=== PATIENT | female | born 1975 | race Caucasian/White ===

== ENCOUNTER 2016-12-16 14:56 | Emergency (ER) | payer BC ==
[2016-12-16 15:28] VITALS: BP 118/65
[2016-12-16] MEDS ORDERED: cefTRIAXone VIAL(*) 1,000 MG VIAL IM ONE (15:45)
[2016-12-16] MEDS ORDERED: Lidocaine 1% MPF* 2 ML VIAL INJ ONE (15:46)
--- NOTE | 2016-12-16 15:55 | UC ---
Skin Complaint HPI - HPI Summary HPI Summary: Patients legs have become swollen and red, painful, she divine have a fever 3 days ago , but not now. she has been using the hot tub daily - History of Current Complaint Chief Complaint: [facility] Time Seen by Provider: 12/16/16 15:31 Stated Complaint: RIGHT LEG SKIN COMPLAINT Hx Obtained From: Patient Hx Last Menstrual Period: 11/24/16 ?: No Onset/Duration: Sudden Onset, Lasting Days Skin Exposure Onset/Duration: Days Ago Timing: Constant Onset Severity: Mild Current Severity: Severe Location: Discrete - lower legs Character: Redness, Raised, Painful Aggravating Factor(s): Nothing Alleviating Factor(s): Nothing Associated Signs & Symptoms: Positive: Rash Related History: Possible Reaction to: Environmental Exposure - Allergy/Home Medications Allergies/Adverse Reactions: Allergies Allergy/AdvReac Type Severity Reaction Status Date / Time No Known Allergies Allergy Verified 12/16/16 15:28 Review of Systems Constitutional: Negative Skin: Rash, Other - drainage Eyes: Negative ENT: Negative Respiratory: Negative Cardiovascular: Negative Gastrointestinal: Negative Genitourinary: Negative Motor: Negative Neurovascular: Negative Musculoskeletal: Negative Neurological: Negative Is Patient Immunocompromised?: No All Other Systems Reviewed And Are Negative: Yes PMH/Surg Hx/FS Hx/Imm Hx Previously Healthy: Yes - Surgical History Surgical History: Yes Surgery Procedure, Year, and Place: right ankle - Family History Known Family History: Negative: Cardiac Disease, Hypertension - Social History Occupation: Employed Full-time Alcohol Use: None Substance Use Type: None Smoking Status (MU): Heavy Every Day Tobacco Smoker Type: Cigarettes Amount Used/How Often: 1 ppd - Immunization History Most Recent Influenza Vaccination: no Physical Exam Triage Information Reviewed: Yes Appearance: Ill-Appearing, Pain Distress, Obese Vital Signs: Initial Vital Signs Temp 98.3 F 12/16/16 15:21 Pulse 97 12/16/16 15:21 Resp 16 12/16/16 15:21 BP 118/65 12/16/16 15:21 Pulse Ox 100 12/16/16 15:21 Vital Signs Reviewed: Yes Eye Exam: Normal ENT Exam: Normal Dental Exam: Normal Neck exam: Normal Respiratory Exam: Normal Cardiovascular Exam: Normal Abdominal Exam: Normal Bowel Sounds: Positive: Present Musculoskeletal Exam: Normal Musculoskeletal: Positive: Strength Intact, ROM Limited @ - in ankles due to swelling, Edema @ - bilateral lower extremitied, more in the left than the right Neurological Exam: Normal Neurological: Positive: Alert, Muscle Tone Normal Psychological Exam: Normal Skin: Positive: Other - right lower leg fire red, small draining areas, drainage is serous in nature, areas of purulent fluid visible under the skin, right leg mild erythema noted Course/Dx - Course Course Of Treatment: hx obtained, exam performed ,meds reviewed, cbc and wound culture taken, area does not luis fernando and there are two weeping area in the right lower leg. - Differential Diagnoses - Skin Complaint Differential Diagnoses: Abscess, Cellulitis, Contact Dermatitis, MRSA - Diagnoses Provider Diagnoses: cellulitis of bilateral lower extremities Discharge - Discharge Plan Condition: Stable Disposition: HOME Prescriptions: Cephalexin CAP* [Keflex CAP*] 500 mg PO QID #40 cap Patient Education Materials: Cellulitis (ED) Additional Instructions: 1.take the keflex as prescribed. start one dose at dinner. 2. We did do blood work today which will be available tomorrow 3. If you are not improving in 24 hours, or you develop a fever or increased pain or the skin opens up, report to ER for evaluation. 4.evelated legs all the time
[2016-12-16 20:51] LABS: Hematocrit 36 % (35-47); Hemoglobin 11.9 g/dl (12.0-16.0); Mean Corpuscular HGB Conc 33 g/dl (31-36); Mean Corpuscular Hemoglobin 29 pg (27-31); Mean Corpuscular Volume 89 fL (80-97); Mean Platelet Volume 9 um3 (7.4-10.4); Red Blood Count 4.06 10^6/ul (4.0-5.4); Red Cell Distribution Width 14 % (10.5-15)
[2016-12-16 20:54] LABS: Comments Flag Yes
[2016-12-16 20:55] LABS: Add Diff/Slide Review? Manual Diff Added
[2016-12-16 22:02] LABS: Eosinophils % 1 % (0-6); Immature Granulocytes 16 % (0-9); Neutrophil % 69 % (38-83)
[2016-12-16 22:03] LABS: Add Path Review? YES
--- NOTE | 2016-12-17 07:52 | UC ---
Progress - Progress Note Progress Note: Please call to check on her. Dx cellulitis on keflex. elevated wbc. if febrile or having chills she may need re evaluation by pcp.
== END 2016-12-16 16:45 | disposition home or self-care (01) ==
LOC: UCCORT 14:56
DX: L03.116 Cellulitis of left lower limb (principal); L03.115 Cellulitis of right lower limb; E66.9 Obesity, unspecified; F17.210 Nicotine dependence, cigarettes, uncomplicated
CPT/HCPCS: 36415; 85025; 85060; 87070; 87077; 87205; 96372; 99202; G0463; J0696